=== PATIENT | female | born 1955 | race Caucasian/White ===

== ENCOUNTER 2021-06-19 20:40 | Inpatient (IN) | payer OTHER ==
[~2021-06-19] VITALS: Ht 160 cm; Wt 77.1 kg
[2021-06-19 20:50] VITALS: BP 136/66
[2021-06-19 21:50] LABS: ABSOLUTE BASOPHILS 0.1 thou/uL (0.0-0.2); ABSOLUTE LYMPHOCYTES 1.7 thou/uL (0.8-5.3); ABSOLUTE MONOCYTES 0.4 thou/uL (0.0-1.2); ABSOLUTE NEUTROPHILS 6.7 thou/uL (1.6-8.1); BASOPHILS 0.7 %; EOSINOPHILS 0.5 %; HEMATOCRIT 39.7 % (37.0-47.0); HEMOGLOBIN 13.3 gm/dL (12.0-15.0); MCH 29.5 pg (26.0-34.0); MCHC 33.6 g/dL (28.0-37.0); MCV 87.9 fL (80.0-100.0); MONOCYTES 4.6 %; MPV 8.2 fl. (7.2-11.1); NUCLEATED RBCS 0 /100WBC; PLATELET COUNT* 210 thou/uL (150-400); POLYS 75.2 %; RBC 4.51 mil/uL (4.20-5.00); RDW-CV 13.6 % (10.5-14.5)
[2021-06-19 21:53] LABS: BE -3.1 mmol/L (-2 to +3); PCO2 35.1 mmHg (35.0-45.0); pH 7.395 (7.340-7.450)
[2021-06-19 21:58] LABS: PO2 55.9 mmHg (75.0-100.0)
[2021-06-19 22:00] LABS: CALCIUM 8.3 mg/dL (8.5-10.1); CREATININE 1.6 mg/dL (0.6-1.3); POTASSIUM 4.2 mmol/L (3.5-5.1)
[2021-06-19 22:13] LABS: ALBUMIN 3.7 g/dL (3.4-5.0); MAGNESIUM 1.9 mg/dL (1.8-2.4); TOTAL BILIRUBIN 0.2 mg/dL (<0.1-1.0); TOTAL PROTEIN 6.9 g/dL (6.4-8.2)
[2021-06-19] MEDS ORDERED: TRAMADOL 50 MG50 MG PO (22:49)
[2021-06-19] MEDS ORDERED: LYRICA100 MG PO (22:50)
[2021-06-19] MEDS ORDERED: BENAZEPRIL HCL20 MG PO (22:50)
[2021-06-19] MEDS ORDERED: LIPITOR 20 MG T20 M1 PO (22:51)
[2021-06-19] MEDS ORDERED: ASA81BEC PO (22:51)
[2021-06-19] MEDS ORDERED: AMITRIPTYLINE150 MG PO (22:53)
[2021-06-20 01:50] VITALS: BP 107/61
[2021-06-20 08:00] VITALS: BP 148/78
[2021-06-20 08:23] LABS: URINE BILIRUBIN NEGATIVE (Negative); URINE BLOOD NEGATIVE (Negative); URINE CLARITY CLEAR; URINE COLOR YELLOW; URINE GLUCOSE-RANDOM NEGATIVE (Negative); URINE KETONES NEGATIVE (Negative); URINE LEUKOCYTES-REFLEX NEGATIVE (Negative); URINE NITRITE-REFLEX NEGATIVE (Negative); URINE PROTEIN NEGATIVE (Negative); URINE UROBILINOGEN 0.2 E.U./dl (0.2-1.0)
[2021-06-20 08:34] LABS: AMP/METHAMP Negative (Negative); BARBITURATES Negative (Negative); BENZODIAZEPINES Negative (Negative); COCAINE Negative (Negative); METHADONE Negative (Negative); OPIATES Negative (Negative); PCP Negative (Negative); THC Negative (Negative)
[2021-06-20 12:00] VITALS: BP 143/75
--- NOTE | 2021-06-20 15:26 | EKG ---
[place] [address] ELECTROCARDIOGRAM REPORT Name: CATERINA DENTON Room: [address] ADM IN .R.#: [id number] Admission: 06/20/21 Attend Phys: Daria Mendoza, Discharge: Date of : 53 Date of Service: 06/19/212108 Report #: [id number] THIS REPORT FOR: //name// [facility] ED Test Date: 2021-06-19 Test Time: 21:09:13 Pat Name: CATERINA DENTON Department: Room: [facility] Gender: F [employer] Operator Helper: [facility] : 1955 Requested By: Aggie Nowak Order Number: [id number] MD: Clifton Hamilton Measurements Intervals [place] Rate: 91 P: 37 UT: 145 QRS: -36 QRSD: 93 T: 11 QT: 345 QTc: 425 Interpretive Statements Sinus rhythm Left axis deviation Low voltage, precordial leads Abnormal R-wave progression, late transition Borderline T abnormalities, anterior leads Baseline wander in lead(s) I,III,aVL Incomplete right bundle branch block No previous ECG available for comparison Electronically Signed On 06-20-2021 15:26:28 CDT by Clifton Hamilton [email or web address] <ELECTRONICALLY SIGNED> By: Clifton Hamilton MD, [facility] 06/20/21 1526 08 08 Clifton Hamilton MD, [facility] /EPI
[2021-06-20 16:00] VITALS: BP 163/91
[2021-06-20 22:46] VITALS: BP 171/91
[2021-06-21] VITALS: BP 159/78
[2021-06-21 04:00] VITALS: BP 156/78
[2021-06-21 04:22] LABS: HEMATOCRIT 38.3 % (37.0-47.0); HEMOGLOBIN 12.9 gm/dL (12.0-15.0); MCH 29.4 pg (26.0-34.0); MCHC 33.8 g/dL (28.0-37.0); MCV 86.9 fL (80.0-100.0); MPV 8.4 fl. (7.2-11.1); RBC 4.41 mil/uL (4.20-5.00); RDW-CV 13.5 % (10.5-14.5); WBC 5.9 thou/uL (4.0-11.0)
[2021-06-21 04:54] LABS: ALBUMIN 3.4 g/dL (3.4-5.0); CALCIUM 8.2 mg/dL (8.5-10.1); CREATININE 1.1 mg/dL (0.6-1.3); POTASSIUM 3.6 mmol/L (3.5-5.1); TOTAL BILIRUBIN 0.4 mg/dL (<0.1-1.0); TOTAL PROTEIN 6.9 g/dL (6.4-8.2)
[2021-06-21 08:00] VITALS: BP 167/84
[2021-06-21 12:00] VITALS: BP 174/87
[2021-06-21 16:09] VITALS: BP 157/83
[2021-06-21 20:00] VITALS: BP 179/97
[2021-06-22 00:35] VITALS: BP 155/79
[2021-06-22 04:59] VITALS: BP 127/68
[2021-06-22 06:37] LABS: ABSOLUTE LYMPHOCYTES 1.3 thou/uL (0.8-5.3); ABSOLUTE MONOCYTES 0.5 thou/uL (0.0-1.2); ABSOLUTE NEUTROPHILS 4.3 thou/uL (1.6-8.1); BASOPHILS 0.1 %; HEMOGLOBIN 12.8 gm/dL (12.0-15.0); LYMPHOCYTES 21.1 %; MCH 29.2 pg (26.0-34.0); MCHC 33.8 g/dL (28.0-37.0); MCV 86.6 fL (80.0-100.0); MONOCYTES 8.6 %; MPV 8.2 fl. (7.2-11.1); NUCLEATED RBCS 0 /100WBC; PLATELET COUNT* 283 thou/uL (150-400); POLYS 70.2 %; RBC 4.39 mil/uL (4.20-5.00); RDW-CV 13.6 % (10.5-14.5); WBC 6.2 thou/uL (4.0-11.0)
[2021-06-22 06:51] LABS: ALBUMIN 3.2 g/dL (3.4-5.0); CALCIUM 8.3 mg/dL (8.5-10.1); CREATININE 1.2 mg/dL (0.6-1.3); TOTAL BILIRUBIN 0.3 mg/dL (<0.1-1.0); TOTAL PROTEIN 6.6 g/dL (6.4-8.2)
[2021-06-22 07:30] VITALS: BP 127/72
[2021-06-22] MEDS ORDERED: PROTONIX40 M2 PO (12:14)
[2021-06-22] MEDS ORDERED: DOXYCYCLINE 10100 MG PO (12:14)
[2021-06-22] MEDS ORDERED: DEXAMETHASONE1 MG PO (12:14)
[2021-06-22 12:32] VITALS: BP 135/78
[2021-06-22 14:00] VITALS: BP 135/78
[2021-06-22 15:22] VITALS: BP 135/78
== END 2021-06-22 15:00 | disposition home or self-care (01) | DRG 177 ==
LOC: M.ERS 20:40 → M.ORTHSURG 06-20 00:02 → M.TBA-ER 06-20 00:02 → M.ORTHSURG 06-20 02:02
PROVIDERS: Internal Medicine; Personal Emergency Response Attendant; ADMIT Internal Medicine; ATTEND Internal Medicine
PROC: XW033E5 Introduction of Remdesivir Anti-infective into Peripheral Vein, Percutaneous Approach, New Technology Group 5 (ICD-10-PCS; principal; 2021-06-20)
DX: U07.1 COVID-19 (principal); J96.01 Acute respiratory failure with hypoxia; J12.82 Pneumonia due to coronavirus disease 2019; N17.9 Acute kidney failure, unspecified; I10 Essential (primary) hypertension; J44.9 Chronic obstructive pulmonary disease, unspecified; Z79.82 Long term (current) use of aspirin; Z79.899 Other long term (current) drug therapy; Z90.49 Acquired absence of other specified parts of digestive tract; Z87.891 Personal history of nicotine dependence